=== PATIENT | female | born 2000 | race Two or more races ===

== ENCOUNTER 2020-12-07 15:50 | Outpatient (CLI) | payer MEDICAID, SELFPAY ==
[2020-12-07 16:21] VITALS: BP 117/59; PULSE 97
[2020-12-07 16:23] VITALS: BMI 35.4
[2020-12-07 17:39] LABS: Color, Urine Yellow (Yellow); Glucose, Dipstick Normal (Normal); Ketone-Dipstick 50 mg/dl (Negative); Leukocyte Esterase-Dipstick 25 /ul (Negative); Nitrite-Dipstick Negative (Negative); Occult Blood-Urine Negative /ul (Negative); Protein-Dipstick 15 mg/dl (Negative); Urine Bilirubin Dipstick Negative (Negative); Urine Clarity Clear (Clear); Urine Urobilinogen Normal (Normal)
--- NOTE | 2020-12-08 01:56 | OB.TRI.NOTE ---
HPI - General HPI Narrative ALY CEBALLOS, is a 20 F @ 33.6 weeks who presents c/o lower pelvic cramping, diarrhea. pt reports family members have had GI symptoms a few days ago as well. denies fever, chills, vomiting, Vaginal bleeding or LOF. Maternal Data Information Final [facility]: 01/19/21 Final [facility] Source: US <20 weeks PFSH PFSH Home Medications PNV comb no.58-iron bisgly-FA [] 1 cap PO DAILY 12/07/20 [History Last Taken 12/06/20 09:00] ferrous sulfate 325 mg PO DAILY 12/07/20 [History Last Taken 12/06/20] magnesium 1 tab PO DAILY 12/07/20 [History Last Taken 12/06/20 09:00] Allergy/AdvReac Type Severity Reaction Status Date / Time No Known Allergies Allergy Verified 12/07/20 16:26 Physical Exam Narrative ve: closed per RN NST FHR Rate Baby A Baseline: 130 Variability:: Moderate Accelerations:: 15 x 15 Decelerations:: Variable (occasional variable with good return to baseline. ) NST Reactive:: Yes FHR Category:: Category I Uterine Activity:: irregular contractions Assessment & Plan (1) Diarrhea during : (2) Pelvic pain affecting : (3) contractions: PLAN: 20yo @ 33.6 weeks- Diarrhea/Cramping in Cervical exam closed- not in labor. PO hydration Follow up as scheduled Rapid covid testing NST today- well being established.
== END 2020-12-07 18:45 | disposition home or self-care (01) ==
LOC: WPOUT 16:13 → WP 16:13
PROVIDERS: Visit Provider Obstetrics & Gynecology
DX: O99.891 Other specified diseases and conditions complicating pregnancy (principal); R19.7 Diarrhea, unspecified; O26.893 Other specified pregnancy related conditions, third trimester; R10.2 Pelvic and perineal pain; Z3A.33 33 weeks gestation of pregnancy
CPT/HCPCS: 59025; 59050; 81002; 87426; 99218; G0378

== ENCOUNTER 2021-01-16 18:45 | Inpatient (IN) | payer MEDICAID, SELFPAY ==
[2021-01-16 19:08] VITALS: BMI 34.0
[2021-01-16 19:19] VITALS: BP 118/76; PULSE 90
[2021-01-16 19:20] VITALS: PULSE 139; O2SAT 97
[2021-01-16] MEDS: Lactated Ringers 1,000 ML 50 ML IV (19:40)
--- NOTE | 2021-01-16 19:53 | PCM.HP.OB ---
HPI - General General Date of Admission: 01/16/21 HPI Narrative ALY CEBALLOS, is a 20 F at 39.4 weeks gestation that presents for an elective induction. Patient lives far away from hospital. Positive movement. Denies any loss of fluid or vaginal bleeding. complicated by anemia (IV iron), obesity and GBS positive. Maternal Data Information [facility] Calculator Estimated Delivery Date Method Current WG Current Estimate 01/19/21 Manual 39w 4d PFSH PFSH Home Medications PNV comb no.58-iron bisgly-FA [] 1 cap PO DAILY 12/07/20 [History Last Taken 12/06/20 09:00] magnesium 1 tab PO DAILY 12/07/20 [History Last Taken 12/06/20 09:00] Allergy/AdvReac Type Severity Reaction Status Date / Time No Known Allergies Allergy Verified 01/16/21 19:29 Social History Smoking Status: Former smoker History Elective abortions Hx Para 2 Spontaneous abortions Hx # Term Pregnancies Ectopic pregnancies Hx # Pregnancies Multiple births # of living children ROS Eyes Eyes: Denies blurry vision, change in vision or spots in vision ENT HEENT: Denies dizziness or headache(s) Cardiovascular Cardiovascular: Denies abdominal pain, chest pain or dyspnea Respiratory/Chest Respiratory/Chest: Denies cough, dyspnea, shortness of breath at rest or shortness of breath with exertion Gastrointestinal Gastrointestinal: Denies abdominal pain, diarrhea or vomiting Genitourinary Genitourinary: Denies change in urinary stream, difficulty urinating or dysuria Musculoskeletal Musculoskeletal: Reports none Integumentary Integumentary: Denies rash Neurologic Neurologic: Denies dizziness, headache(s), memory loss or weakness Psychiatric Psychiatric: Reports none Vital Signs Vital Signs Vital Signs: 01/16/21 19:19 01/16/21 19:20 Pulse Rate 90 139 H Blood Pressure 118/76 BP Systolic 118 BP Diastolic 76 Pulse Ox 97 Weight Weight: 223 lb 8.78 oz Body Mass Index (BMI) 34.0 Physical Exam Const alert, oriented x3 and no apparent distress General Appearance: cooperative Orientation / Consciousness: awake Exam Limitations: no limitations HEENT normocephalic Head and Scalp: normal to inspection Eyes General Eye: normal appearance of both eyes Neck full ROM and no lymphadenopathy Lymph Lymphatic: no lymphadenopathy noted Chest inspection of chest normal Resp normal respiratory effort, normal air movement and clear to auscultation bilaterally Effort and Inspection: able to speak in complete sentences and symmetric chest movement Cardio regular rate and regular rhythm GI normal to inspection, nondistended, normoactive bowel sounds Manual OB Exam: dilated 3, effaced 60 and station -2 ( head ballotable) Back/Spine normal ROM Extremity full ROM and no calf tenderness Skin no rashes or lesions noted General Skin Exam: no breakdown Neuro oriented x3 and CN's II-XII intact bilaterally Psych mental status grossly normal and thought process normal Labs Labs Labs: No Data to Display O+ Rubella - immune HB neg HC neg HIV- NR RPR- NR COVID- 19 - negative GBS positive Assessment & Plan (1) 39 weeks gestation of : (2) Elective induction of labor planned: (3) Anemia affecting in third trimester: (4) Positive GBS test: PLAN: Admit to labor and delivery Routine labs IV fluids per policy GBS positive- Start PCN 5 million units IV now and then PCN 3 million units IV every 4 hours until delivery NST reactive- Cat. 1 tracing Start Pitocin IV at 2 mu/min and titrate per policy Anticipate AROM once head is not ballotable Pain medications when indicated Dr. Orozco notified of admission and is collaborating physician
[2021-01-16 20:05] LABS: Absolute Lymphocyte Count 1.23 X10^3/uL (0.83-4.51); Basophil# 0.02 X10^3/uL; Basophil% 0.3 % (0-1); Eosinophil# 0.04 X10^3/uL; Eosinophils% 0.5 % (0-5); Hematocrit 34.5 % (37-47); Hemoglobin 10.7 g/dL (12.0-15.0); Lymphocyte # 1.23 X10^3/ul (0.83-4.51); Lymphocyte % 15.8 % (19-41); Mean Corpuscular Volume 90.3 fL (81-99); Mean Platelet Vol. 11.8 fl (6.2-12.0); Monocyte# 0.52 X10^3/uL; Monocyte% 6.7 % (0-10); NRBC Flagged by Analyzer 0 % (0-5); Neutrophil # 5.97 X10^3/uL (2.7-7.7); Neutrophil % 76.4 % (47-70); POSITIVE COUNT YES; Platelet Count 198 K/mm3 (150-450); RBC Distribution Width CV 17.2 % (11.6-14.6); RBC Distribution Width SD 56.7 fl (35.1-43.9); Red Blood Count 3.82 M/mm3 (4.2-5.4); White Blood Count 7.8 K/mm3 (4.4-11.0)
[2021-01-16 20:13] LABS: Differential Indicated SCAN CRITERIA MET
[2021-01-16] MEDS: Oxytocin 30 units/NS 500 ml 30 UNITS/500 ML IV.SOLN IV (20:16)
[2021-01-16 20:42] LABS: Differential Comment SCANNED
[2021-01-16 20:43] LABS: Platelet Estimate ADEQUATE (ADEQ)
[2021-01-16 20:59] VITALS: BP 110/59; PULSE 76; TEMP 35.9; O2SAT 98
[2021-01-16] MEDS: fentaNYL 100 MCG/2 ML Ampul IV (21:44)
[2021-01-16 21:48] VITALS: BP 126/66; PULSE 79; TEMP 36.1; O2SAT 98
[2021-01-16 23:23] VITALS: BP 127/60; PULSE 72
[2021-01-16] MEDS: Lactated Ringers 500 ML 999 ML IV (23:47)
[2021-01-17] VITALS (58 sets, daily range): BP systolic 98–145; BP diastolic 51–95; PULSE 61–185; TEMP 35.7–37; O2SAT 82–99
[2021-01-17] MEDS: Penicillin G 3,000,000 Units 50 ML 100 UNITS IV ×4 (00:25→14:37)
[2021-01-17] MEDS: fentaNYL-bupivacaine (epidural) 100 ML BAG EPIDURAL ×4 (00:55→15:46)
[2021-01-17] MEDS: Acetaminophen 500 MG Tablet PO ×2 (01:38→16:12)
[2021-01-17] MEDS: Lactated Ringers 1,000 ML 200 ML IV ×3 (03:00→14:36)
[2021-01-17] MEDS: 0.9% Saline Lock 10 ML Syringe IV (03:37)
[2021-01-17] MEDS: Ondansetron 4 MG/2 ML Vial IV ×2 (03:37→16:45)
[2021-01-17] MEDS: Lactated Ringers 500 ML 999 ML IV (03:46)
[2021-01-17 04:44] LABS: ROM Internal Control Test YES-OK TO RESULT pt. (Internal QC); ROM Patient Test Negative (Negative)
--- NOTE | 2021-01-17 12:11 | PN.OBGYN_ITS ---
Subjective Subjective Resting comfortably in bed with epidural. FOB at bedside. Objective Data Objective Data Vital Signs: Vital Signs Temp Pulse BP Pulse Ox 97.1 F L 71 117/72 98 01/17/21 12:01 01/17/21 12:01 01/17/21 12:01 01/17/21 07:22 Weight: 223 lb 8.78 oz Body Mass Index (BMI) 34.0 Intake & Output: Intake and Output for Last 24 Hours 01/15/21 01/16/21 01/17/21 23:59 23:59 23:59 Intake Total 694.73 / 694.73 3518.16 / 3518.16 Output Total 1950 / 1950 Balance 694.73 / 694.73 1568.16 / 1568.16 Lab / Micro Data Result Diagrams: 01/16/21 19:40 Labs: Laboratory Results - last 24 hr 01/16/21 19:40: WBC 7.8, RBC 3.82 L, Hgb 10.7 L, Hct 34.5 L, MCV 90.3, MCH 28.0, MCHC 31.0 L, RDW Std Deviation 56.7 H, RDW Coeff of Noemi 17.2 H, Plt Count 198, MPV 11.8, Immature Gran % (Auto) 0.300, Neut % (Auto) 76.4 H, Lymph % (Auto) 15.8 L, [place] % (Auto) 6.7, Eos % (Auto) 0.5, Baso % (Auto) 0.3, Absolute Neuts (auto) 6.0, Absolute Lymphs (auto) 1.23, Nucleated RBC % 0, Differential Comment SCANNED, Platelet Estimate ADEQUATE 01/16/21 19:40: Blood Type O POSITIVE, Antibody Screen NEGATIVE 01/17/21 03:30: Vag Amniotic Fld Detect Negative Physical Exam Narrative Cervix 5.5cm/70%/-1. AROM for large amount of clear fluid NST FHR Rate Baby A Baseline: 120 Variability:: Moderate Accelerations:: None Decelerations:: None FHR Category:: Category I Uterine Activity:: every 2-3 minutes, strong. Assessment & Plan (1) 39 weeks gestation of : (2) Elective induction of labor planned: (3) Anemia affecting in third trimester: (4) Positive GBS test: PLAN: 1) AROM clear fluid 2) GBS prophylaxis 3) Pitocin at 12mu's. Continue to titrate per policy 4) Epidural effective 5) collaborative physician and notified of patient status.
--- NOTE | 2021-01-17 17:20 | PCM.PN.OB ---
Subjective Subjective Comfortable with epidural and feeling urge to push. FOB at bedside. Objective Data Objective Data Vital Signs: Vital Signs Temp Pulse BP Pulse Ox 97.1 F L 66 115/71 98 01/17/21 17:06 01/17/21 17:06 01/17/21 17:06 01/17/21 14:45 Weight: 223 lb 8.78 oz Body Mass Index (BMI) 34.0 Intake & Output: Intake and Output for Last 24 Hours 01/15/21 01/16/21 01/17/21 23:59 23:59 23:59 Intake Total 694.73 / 694.73 5021.36 / 5021.36 Output Total 2525 / 2525 Balance 694.73 / 694.73 2496.36 / 2496.36 Lab / Micro Data Result Diagrams: 01/16/21 19:40 Labs: Laboratory Results - last 24 hr 01/16/21 19:40: WBC 7.8, RBC 3.82 L, Hgb 10.7 L, Hct 34.5 L, MCV 90.3, MCH 28.0, MCHC 31.0 L, RDW Std Deviation 56.7 H, RDW Coeff of Noemi 17.2 H, Plt Count 198, MPV 11.8, Immature Gran % (Auto) 0.300, Neut % (Auto) 76.4 H, Lymph % (Auto) 15.8 L, [place] % (Auto) 6.7, Eos % (Auto) 0.5, Baso % (Auto) 0.3, Absolute Neuts (auto) 6.0, Absolute Lymphs (auto) 1.23, Nucleated RBC % 0, Differential Comment SCANNED, Platelet Estimate ADEQUATE 01/16/21 19:40: Blood Type O POSITIVE, Antibody Screen NEGATIVE 01/17/21 03:30: Vag Amniotic Fld Detect Negative Physical Exam Narrative anterior lip/90/0 station NST FHR Rate Baby A Baseline: 120 Variability:: Minimal Accelerations:: None Decelerations:: Variable FHR Category:: Category II Uterine Activity:: Every 2-3 minutes strong Assessment & Plan (1) 39 weeks gestation of : (2) Elective induction of labor planned: (3) Positive GBS test: (4) Anemia affecting in third trimester: PLAN: 1) Anterior lip present and not able to be reduced. Will reassess in 30 minutes 2) Pitocin at 14mus 3) Epidural effective 4) Anticipate vaginal delivery soon 5) notified of patient status 6) Patient consented to medical student in room for observation
[2021-01-17] MEDS: Oxytocin 30 units/NS 500 ml 30 UNITS/500 ML IV.SOLN 334 UNITS IV (18:21)
--- NOTE | 2021-01-17 18:31 | EX.PCM.OBRPT ---
Assessment & Plan (1) Vaginal delivery: (2) Shoulder dystocia, delivered: Maternal Data Information [facility] Calculator Estimated Delivery Date Method Current WG Current Estimate 01/19/21 Manual 39w 5d Vaginal Delivery Maternal Presentation Maternal Presentation: Elective Induction Type of Induction: Pitocin Operative Information Date of Procedure: 01/17/21 Pre-Operative Diagnosis: Elective Induction of Labor Post-Operative Diagnosis: with shoulder dystocia Surgery / Procedure Performed: Spontaneous Vaginal Delivery Type of Anesthesia: Epidural Estimated Blood Loss: 400ml Time of Delivery: 18:17 Findings Description of Procedure: Progressed to complete with urge to push and rectal pressure. Comfortable with epidural. of viable female infant. APGARS 7,9. Infant head delivered with immediate turtle sign. Head flat and McRobert's position, attempted delivery of body and not forthcoming. All call for additional staff and director mobile media solutions to room for shoulder dystocia. Suprapubic pressure applied then attempted to remove posterior arm without success. Ochoa/Woodscrew maneuvers released anterior shoulder and heard pop with delivery. Posterior arm delivered and body forthcoming. Shoulder dystocia lasted approximately 1 minute 35 seconds respectively. Cord clamped and immediately cut and handed to awaiting staff. Cord gases obtained. Pitocin started for active 3rd stage management. Placenta delivered with expression via rony, intact, 3 vessel cord. Perineum inspected and revealed intact perineum. Vaginal sweep completed. EBL 400 ml. Sponge and instrument count correct by me. Mom and baby stable, family bonding well. notified of delivery. Presentation: Vertex and JOHN Amniotic Membrane Rupture Type: Artificial Amniotic Fluid Description: Clear Placental Delivery Description: Expressed Placenta Disposition: [facility] Cord Vessel Description: 3 Vessels Cord Entanglement: None Cord Gases: ABG and VBG Infant A Gender: Female (1 minute): 7 (5 minute): 9 Delayed Cord Clamping: No Post Vaginal Delivery Medications Given After Delivery: IV Pitocin Episiotomy Description: None Laceration: None Complication Complications: - (Shoulder dystocia)
[2021-01-18 00:20] VITALS: BP 130/76; PULSE 83; RESP 18; TEMP 35.8; O2SAT 97
[2021-01-18 04:00] VITALS: BP 123/65; PULSE 66; RESP 16; TEMP 36.1; O2SAT 98
[2021-01-18] MEDS: Ibuprofen 600 MG Tablet PO (06:23)
[2021-01-18 07:24] LABS: Hematocrit 31.8 % (37-47); Mean Corp Hgb Conc 31.4 g/dL (32-36); Mean Corpuscular Hgb 28.3 pg (27.0-32.0); Mean Corpuscular Volume 90.1 fL (81-99); Mean Platelet Vol. 10.9 fl (6.2-12.0); Platelet Count 164 K/mm3 (150-450); Red Blood Count 3.53 M/mm3 (4.2-5.4); White Blood Count 8.2 K/mm3 (4.4-11.0)
[2021-01-18 07:56] VITALS: BP 121/66; PULSE 76; RESP 16; TEMP 36.4; O2SAT 95
--- NOTE | 2021-01-18 08:11 | PCM.PN.OB ---
Subjective Subjective patient seen at bedside, doing well. Patient reports good pain control. lochia mild. Objective Data Objective Data Vital Signs: Vital Signs Temp Pulse Resp BP Pulse Ox 97.5 F L 76 16 121/66 H 95 01/18/21 07:56 01/18/21 07:56 01/18/21 07:56 01/18/21 07:56 01/18/21 07:56 Oxygen Delivery Method Room Air Weight: 101.4 kg Body Mass Index (BMI) 34.0 Intake & Output: Intake and Output for Last 24 Hours 01/16/21 01/17/21 01/18/21 23:59 23:59 23:59 Intake Total 694.73 / 694.73 6422.46 / 6422.46 Output Total 2525 / 2525 Balance 694.73 / 694.73 3897.46 / 3897.46 Lab / Micro Data Result Diagrams: 01/18/21 07:12 Labs: Laboratory Results - last 24 hr 01/18/21 07:12: WBC 8.2, RBC 3.53 L, Hgb 10.0 L, Hct 31.8 L, MCV 90.1, MCH 28.3, MCHC 31.4 L, RDW Std Deviation 56.0 H, RDW Coeff of Noemi 17.0 H, Plt Count 164, MPV 10.9 Assessment & Plan (1) Vaginal delivery: (2) Shoulder dystocia, delivered: PLAN: PPD#1 , Doing well Routine care pain mgmt ambulation dc home
--- NOTE | 2021-01-18 08:12 | PCM.DC ---
Discharge Instructions Diet Discharge Diet: No restrictions Activity May resume sexual activity in: 6-8 weeks Dressing / Incision Call your doctor if you observe: Fever of 101 or Higher, Inability to urinate, Using more than 1 pad per hour and Uncontrolled pain Follow Up Care Please Follow Up With: Alyce Barger MD When: 1-2 weeks post and again at 6 weeks post . [phone] Test Results: Test results from this visit will be discussed in further detail at your follow-up appointment, if applicable. Discharge Plan Admission Admit Date/Time: 01/16/21 18:45 Attending Provider: Keerthi Nettles Primary Care Provider: Care Physician,Lynette Primary Discharge Orders/Prescriptions Prescriptions: New ibuprofen 600 mg Tablet 600 mg PO Q6H PRN PRN (Reason: Pain Score 1-3) Qty: 0 RF: 0 Continued PNV comb no.58-iron bisgly-FA 10-400 mg-mcg Capsule 1 cap PO DAILY RF: 0 Discontinued magnesium Tablet 1 tab PO DAILY RF: 0 Referrals / Follow Up: Care Physician,No Primary [Primary Care Provider] - Disposition Disposition (needs filled in before D/C Order can be placed): Home, Self Care
[2021-01-18 12:56] VITALS: BP 114/68; PULSE 77; RESP 16; TEMP 36.6
[2021-01-18] MEDS: MedroxyPROGESTERone 150 MG/ML Syringe IM (14:59)
[2021-01-18] MEDS: Prenatal Vits Tablet 1 TABLET PO (14:59)
[2021-01-18 16:54] VITALS: BP 122/56; RESP 16; TEMP 36.3
[2021-01-18 20:00] VITALS: BP 123/73; PULSE 74; RESP 16; TEMP 36
== END 2021-01-18 20:20 | disposition home or self-care (01) | DRG 560 ==
PROVIDERS: Admitting Provider Advanced Practice Midwife; Visit Provider Advanced Practice Midwife
DX: O99.824 Streptococcus B carrier state complicating childbirth (principal); O66.0 Obstructed labor due to shoulder dystocia; Z37.0 Single live birth; Z3A.39 39 weeks gestation of pregnancy; Z87.891 Personal history of nicotine dependence
CPT/HCPCS: 36415; 59025; 59050; 84112; 85025; 85027; 86850; 86900; 86901; 99218; J7120; A4216; G0378; J2405; J3490